=== PATIENT | male | born 1980 | race American Indian/Alaskan Native ===

== ENCOUNTER 2020-12-23 | Emergency (ER) | payer OTHER ==
[2020-12-23 01:12] VITALS: BP 102/72
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
== END 2020-12-23 01:20 | disposition home or self-care (01) ==
LOC: ED
DX: R51.9 Headache, unspecified (principal); Z79.899 Other long term (current) drug therapy; V49.49XA Driver injured in collision with other motor vehicles in traffic accident, initial encounter; Y92.410 Unspecified street and highway as the place of occurrence of the external cause; Y93.89 Activity, other specified; Y99.8 Other external cause status
CPT/HCPCS: 99282